=== PATIENT | female | born 1970 | race Two or more races ===

== ENCOUNTER 2024-06-01 11:01 | Inpatient (IN) | payer OTHER ==
[~2024-06-01] VITALS: Ht 121.9 cm; Wt 85.7 kg
[2024-06-01] MEDS ORDERED: PEPCID40 MG PO (11:47)
[2024-06-01] MEDS ORDERED: PROTONIX40 MG PO (11:47)
[2024-06-01] MEDS ORDERED: COZAAR50 MG PO (11:47)
[2024-06-01] MEDS ORDERED: VITAMIN D310 MCG/1 M (11:48)
[2024-06-01] MEDS ORDERED: MAGNESIUM250 M1 PO (11:48)
[2024-06-09] MEDS ORDERED: CHLORHEXIDINE GLUCONATE 120 ML BOTTLE TOP ONE (10:53)
[2024-06-09] MEDS ORDERED: BUPIVACAINE HCL 30 ML VIAL IJ ONE (12:00)
[2024-06-09] MEDS ORDERED: LIDOCAINE HCL 1%/EPINEPHRINE 20ML VIAL IJ ONE (12:00)
[2024-06-09] MEDS ORDERED: CEFTRIAXONE SODIUM 2,000 MG VIAL IV ONE (12:00)
[2024-06-09] MEDS ORDERED: METRONIDAZOLE/SODIUM CHLORIDE 500 MG/100 ML PIGGYBACK IV ONE (12:00)
[2024-06-09] MEDS ORDERED: ACETAMINOPHEN 500 MG GEL..CAP PO SCH (14:00)
[2024-06-09] MEDS ORDERED: RINGERS SOLUTION,LACTATED 1,000 ML IV SCH (14:00)
[2024-06-09] MEDS ORDERED: OxyCODONE HCL 5 MG TABLET (ROXICODONE) PO PRN (14:00)
[2024-06-09] MEDS ORDERED: ONDANSETRON HCL 2 MG/ML VIAL IV PRN (14:00)
[2024-06-09] MEDS ORDERED: MORPHINE SULFATE 4 MG/ML CARTRIDGE IV PRN (14:00)
[2024-06-09] MEDS ORDERED: METOCLOPRAMIDE HCL 5 MG/ML VIAL IV SCH (17:00)
[2024-06-09] MEDS ORDERED: GABAPENTIN 300 MG CAPSULE PO SCH (17:00)
[2024-06-09] MEDS ORDERED: SIMETHICONE 125 MG CAPSULE PO SCH (17:00)
[2024-06-09] MEDS ORDERED: POLYETHYLENE GLYCOL 3350 17 GM BLIST.PACK PO SCH (17:00)
[2024-06-09] MEDS ORDERED: HYOSCYAMINE SULFATE 0.125 MG TAB.SUBL SL SCH (17:00)
[2024-06-09] MEDS ORDERED: MORPHINE SULFATE 4 MG/ML VIAL IV ONE (17:15)
[2024-06-09] MEDS ORDERED: hydrALAZINE HCL 20 MG VIAL IV PRN (17:45)
[2024-06-09] MEDS ORDERED: HYOSCYAMINE SULFATE 0.125 MG TAB.SUBL ONE (17:54)
[2024-06-09] MEDS ORDERED: METOCLOPRAMIDE HCL 5 MG/ML VIAL ONE (17:54)
[2024-06-09] MEDS ORDERED: ACETAMINOPHEN 500 MG GEL..CAP PO ONE (17:54)
[2024-06-09 20:30] VITALS: BP 118/82; O2SAT 99
[2024-06-09] MEDS ORDERED: FAMOTIDINE/PF 20 MG/2 ML VIAL IV PUSH SCH (21:00)
[2024-06-10 00:27] VITALS: BP 131/68; O2SAT 100
[2024-06-10 06:37] LABS: HEMATOCRIT 38.8 % (36.0-45.00); HEMOGLOBIN 13.5 g/dL (12.0-15.00); MEAN CELL VOLUME 86.1 fL (80.00-100.00); MEAN CORPUSCULAR HEMOGLOBIN 29.9 pg (27.00-32.0); MEAN CORPUSCULAR HGB CONC 34.7 g/dl (32.0-36.0); PLATELET COUNT 208 K/uL (150-450); RED CELL DISTRIBUTION WIDTH 13.7 % (11.5-14.5)
[2024-06-10 07:05] LABS: CALCIUM 8.4 mg/dL (8.5-10.1); CREATININE SERUM 0.79 mg/dL (0.55-1.02); GFR 75.28; MAGNESIUM 1.7 mg/dL (1.8-2.4); PHOSPHOROUS 3.1 mg/dL (2.5-4.9); POTASSIUM 3.71 mEq/L (3.5-5.1)
[2024-06-10 08:13] VITALS: BP 110/65; O2SAT 99
[2024-06-10] MEDS ORDERED: LACTULOSE 20 G/30 ML BLIST.PACK PO SCH (09:00)
[2024-06-10] MEDS ORDERED: LACTOBACILLUS ACIDOPHILUS 1 CAP CAP PO SCH (09:00)
[2024-06-10] MEDS ORDERED: LOSARTAN POTASSIUM 50 MG TABLET PO SCH (09:00)
[2024-06-10] MEDS ORDERED: MAGNESIUM SULFATE IN WATER 50 ML IV NR (10:45)
[2024-06-10 16:30] VITALS: BP 100/55; O2SAT 99
[2024-06-10] MEDS ORDERED: ENOXAPARIN SODIUM 40 MG/0.4 ML SYRINGE SUBCUTANEO SCH (17:00)
[2024-06-11 00:20] VITALS: BP 132/61; O2SAT 100
[2024-06-11 06:22] LABS: HEMATOCRIT 34.6 % (36.0-45.00); HEMOGLOBIN 11.9 g/dL (12.0-15.00); MEAN CELL VOLUME 88.2 fL (80.00-100.00); MEAN CORPUSCULAR HEMOGLOBIN 30.2 pg (27.00-32.0); MEAN CORPUSCULAR HGB CONC 34.2 g/dl (32.0-36.0); PLATELET COUNT 184 K/uL (150-450); RED BLOOD COUNT 3.92 M/uL (4.00-6.00); RED CELL DISTRIBUTION WIDTH 13.3 % (11.5-14.5)
[2024-06-11 07:22] LABS: CALCIUM 8.2 mg/dL (8.5-10.1); CREATININE SERUM 0.73 mg/dL (0.55-1.02); GFR 82.47; POTASSIUM 3.7 mEq/L (3.5-5.1)
[2024-06-11 08:14] LABS: PHOSPHOROUS 1.9 mg/dL (2.5-4.9)
[2024-06-11] MEDS ORDERED: POTASSIUM PHOS,M-BASIC-D-BASIC 3 MM/ML VIAL IV NR (09:00)
[2024-06-11] MEDS ORDERED: ENOXAPARIN SODIUM 40 MG/0.4 ML SYRINGE SUBCUTANEO SCH (09:00)
[2024-06-11 09:01] VITALS: BP 138/75; O2SAT 98
[2024-06-11 17:14] VITALS: BP 105/66; O2SAT 98
[2024-06-11] MEDS ORDERED: DIPHENHYDRAMINE HCL 50 MG/ML VIAL 1ML IV ONE (21:00)
[2024-06-12] VITALS: BP 108/68; O2SAT 96
[2024-06-12 08:00] VITALS: BP 127/69; O2SAT 99
== END 2024-06-12 12:54 | disposition home or self-care (01) | DRG 330 ==
LOC: O/R 06-09 05:20 → SURH 06-09 10:30 → SURG 06-09 14:33
PROVIDERS: Internal Medicine Geriatric Medicine; ADMIT Colon & Rectal Surgery; ATTEND Colon & Rectal Surgery
PROC: 0DBP4ZZ Excision of Rectum, Percutaneous Endoscopic Approach (ICD-10-PCS; 2024-06-09)
PROC: 0DJD8ZZ Inspection of Lower Intestinal Tract, Via Natural or Artificial Opening Endoscopic (ICD-10-PCS; 2024-06-09)
PROC: 0DTN4ZZ Resection of Sigmoid Colon, Percutaneous Endoscopic Approach (ICD-10-PCS; principal; 2024-06-09 10:30)
DX: K57.32 Diverticulitis of large intestine without perforation or abscess without bleeding (principal); K92.1 Melena; I11.9 Hypertensive heart disease without heart failure

== ENCOUNTER 2024-09-02 09:31 | Emergency (ER) | payer OTHER ==
[~2024-09-02] VITALS: Ht 162.6 cm; Wt 84.8 kg
[~2024-09-02 09:31] MED LIST: COZAAR50 MG PO; MAGNESIUM250 M1 PO; PEPCID40 MG PO; PROTONIX40 MG PO; VITAMIN D310 MCG/1 M
[2024-09-02] MEDS ORDERED: TRIAMCINOLONE ACETONIDE 40 MG/ML VIAL ONE (10:34)
[2024-09-02] MEDS ORDERED: TRIAMCINOLONE ACETONIDE 40 MG/ML VIAL IM ONE (10:45)
[2024-09-02 11:13] LABS: BASO % 0.5 % (0.1-1.2); EOS # 0.11 (0.04-0.54); EOS % 2.7 % (0.7-7.0); HEMATOCRIT 41.6 % (34.1-44.9); HEMOGLOBIN 13.6 g/dL (11.2-15.7); LYMPH # 1.04 (1.18-3.74); LYMPH % 25.1 % (19.3-53.1); MONO # 0.29 (0.24-0.82); NEUT # 2.67 (1.56-6.13); NEUT % 64.5 % (34.0-71.1); PLATELET COUNT 257 K/uL (163-369); RED BLOOD COUNT 4.69 M/uL (3.93-5.22); RED CELL DISTRIBUTION WIDTH 12.7 % (11.6-14.4)
[2024-09-02 11:48] LABS: ALBUMIN 3.9 gm/dL (3.4-5.0); BILIRUBIN TOTAL 0.78 mg/dL (0.3-1.2); CALCIUM 9.2 mg/dL (8.5-10.1); CREATININE SERUM 0.85 mg/dL (0.55-1.02); GFR 69.18; GLOBULINA 3.5 G/DL (2.4-3.5); POTASSIUM 4.59 mEq/L (3.5-5.1); TOTAL PROTEIN 7.4 gm/dL (6.4-8.2)
[2024-09-02 11:58] LABS: PH,URINE 6.5 (5.0-8.0); URINE APPEARANCE Clear; URINE BILIRRUBIN Negative (NEGATIVE); URINE BLOOD Negative; URINE COLOR Yellow; URINE GLUCOSE Negative (NEGATIVE); URINE KETONE Negative (NEGATIVE); URINE LEUKOCYTE Moderate; URINE NITRATE Negative; URINE PROTEIN Negative (NEGATIVE); URINE UROBILINOGEN 0.2 E.U./dl
[2024-09-02 12:01] LABS: URINE BACTERIA 75.8 uL (0.0-1933); URINE RBC 3.3 uL (0.0-20.8); URINE WBC 54.2 uL (0.0-23.2)
[2024-09-02] MEDS ORDERED: DOLOGEN CAPLET1 EACH PO (13:45)
== END 2024-09-02 14:26 | disposition home or self-care (01) ==
LOC: ER 09:41
PROVIDERS: General Practice
DX: M94.0 Chondrocostal junction syndrome [Tietze] (principal); I10 Essential (primary) hypertension; Z88.6 Allergy status to analgesic agent; Z88.8 Allergy status to other drugs, medicaments and biological substances; Z87.19 Personal history of other diseases of the digestive system